=== PATIENT | female | born 1950 ===

== ENCOUNTER 2017-09-05 17:07 | Emergency (ER) | payer OTHER, MEDICARE ==
[2017-09-05 17:22] VITALS: BP 144/86; PULSE 81; RESP 20; TEMP 97.9; O2SAT 100
[2017-09-05] MEDS ORDERED: Naproxen 500 MG TAB PO STA (18:01)
[2017-09-05] MEDS ORDERED: Naproxen 500 MG TAB PO ONE (18:14)
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
== END 2017-09-05 19:49 | disposition home or self-care (01) ==
LOC: H.ER 17:07 → MERGE 17:07 → H.ER 19:49
DX: S49.92XA Unspecified injury of left shoulder and upper arm, initial encounter (principal); V43.52XA Car driver injured in collision with other type car in traffic accident, initial encounter